=== PATIENT | male | born 1960 | race Caucasian/White ===

== ENCOUNTER 2019-09-15 18:45 | Emergency (ER) | payer OTHER, MEDICAID ==
[~2019-09-15] VITALS: Ht 175.3 cm; Wt 91.2 kg
[~2019-09-15 18:45] MED LIST: LEVOTHYROXIN0.075 M2 PO; LIALDA1.2 GM PO; LOMOTIL1 TAB PO; MODERIBA PO; NEU300 PO; NORCO1 TA2 PO; SOVALDI400 MG PO
[2019-09-15 19:45] VITALS: Ht 175.3 cm; Wt 91.2 kg
[2019-09-15 21:40] VITALS: BP 144/97
== END 2019-09-15 21:40 | disposition home or self-care (01) ==
LOC: ED 18:45
DX: K51.90 Ulcerative colitis, unspecified, without complications (principal); R21 Rash and other nonspecific skin eruption; K62.89 Other specified diseases of anus and rectum; I25.2 Old myocardial infarction; Z86.19 Personal history of other infectious and parasitic diseases; Z90.49 Acquired absence of other specified parts of digestive tract; Z88.8 Allergy status to other drugs, medicaments and biological substances
CPT/HCPCS: J2270; J7512; Q0162

== ENCOUNTER 2019-09-17 19:28 | Inpatient (IN) | payer OTHER, MEDICAID ==
[~2019-09-17] VITALS: Ht 175.3 cm; Wt 90.3 kg
[2019-09-17 19:53] VITALS: Ht 175.3 cm; Wt 90.3 kg
[2019-09-17 20:48] LABS: BASOPHIL % 0.6 % (0-2); PLATELET COUNT 220 x10^3mcL (130-400); RED CELL DISTRIBUTION WIDTH 13.7 % (11.5-14.5)
[2019-09-17 21:17] LABS: CALCIUM 8.2 mg/dL (8.5-10.1); CARBON DIOXIDE 29.9 mmol/L (21-32); CHLORIDE SERUM 105 mmol/L (98-107); CREATININE SERUM 1.2 mg/dL (0.7-1.3); GFR1 > 60 mL/min; GLUCOSE SERUM 110 mg/dL (74-106); POTASSIUM SERUM 3.5 mmol/L (3.5-5.1); SODIUM SERUM 142 mmol/L (136-145)
[2019-09-17 21:22] LABS: ALBUMIN 3.5 g/dL (3.4-5.0); ALKALINE PHOSPHATASE 76 U/L (46-116); ALT/SGPT 31 U/L (16-63); AST/SGOT 24 U/L (15-37); BILIRUBIN TOTAL 0.53 mg/dL (0.20-1.00); LIPASE 281 IU/L (73-393); TOTAL PROTEIN, SERUM 7.4 g/dL (6.4-8.2)
[2019-09-17] MEDS ORDERED: TRAZODONE50 M1 PO (21:43)
[2019-09-17] MEDS ORDERED: PROTONIX40 MG PO (21:44)
[2019-09-17] MEDS ORDERED: [UNRECOGNIZED DRUG - OTHER] TOP (21:45)
[2019-09-17 22:47] LABS: microscopic required? NO
[2019-09-17 22:52] LABS: UA SPECIFIC GRAVITY 1.025 (1.005-1.035); urine erythrocyte NEGATIVE (NEGATIVE)
[2019-09-18] VITALS (7 sets, daily range): BP systolic 115–139; BP diastolic 73–99
[2019-09-18 06:08] LABS: BASOPHIL % 0.5 % (0-2); PLATELET COUNT 223 x10^3mcL (130-400); RED CELL DISTRIBUTION WIDTH 13.8 % (11.5-14.5)
[2019-09-18 06:15] LABS: CALCIUM 8.3 mg/dL (8.5-10.1); CARBON DIOXIDE 27.3 mmol/L (21-32); CHLORIDE SERUM 102 mmol/L (98-107); CREATININE SERUM 1.1 mg/dL (0.7-1.3); GFR1 > 60 mL/min; GLUCOSE SERUM 110 mg/dL (74-106); MAGNESIUM 2.3 mg/dL (1.8-2.4); POTASSIUM SERUM 3.9 mmol/L (3.5-5.1); SODIUM SERUM 136 mmol/L (136-145)
[2019-09-18 06:28] LABS: AMPHETAMINE QUAL UR NONE DETECTED (See below)
[2019-09-19 04:40] VITALS: BP 110/75
[2019-09-19 05:46] LABS: BASOPHIL % 0.2 % (0-2); PLATELET COUNT 236 x10^3mcL (130-400); RED CELL DISTRIBUTION WIDTH 13.9 % (11.5-14.5)
[2019-09-19 06:10] LABS: CALCIUM 8.8 mg/dL (8.5-10.1); CARBON DIOXIDE 24.2 mmol/L (21-32); CHLORIDE SERUM 103 mmol/L (98-107); GFR1 > 60 mL/min; GLUCOSE SERUM 128 mg/dL (74-106); POTASSIUM SERUM 4.1 mmol/L (3.5-5.1); SODIUM SERUM 135 mmol/L (136-145)
[2019-09-19 09:07] VITALS: BP 130/76
[2019-09-19 11:31] VITALS: BP 130/76
[2019-09-19 12:46] VITALS: BP 130/76
[2019-09-19 13:38] VITALS: BP 120/75
== END 2019-09-19 15:57 | disposition home or self-care (01) | DRG 387 ==
LOC: ED 19:28 → MU 09-18 00:47 → EDBEDREQ 09-18 00:50 → MU 09-18 02:04
PROVIDERS: Emergency Medicine; ADMIT Internal Medicine
DX: K51.911 Ulcerative colitis, unspecified with rectal bleeding (principal); E83.51 Hypocalcemia; B19.20 Unspecified viral hepatitis C without hepatic coma; I25.10 Atherosclerotic heart disease of native coronary artery without angina pectoris; I25.2 Old myocardial infarction; Z90.49 Acquired absence of other specified parts of digestive tract; Z68.29 Body mass index [BMI] 29.0-29.9, adult
CPT/HCPCS: 87046; 87046-59; C9113; G0378; J1885; J1956; J2270; J2920; J3490; J7030; Q0092; Q9967